=== PATIENT | male | born 1975 | race Caucasian/White ===

== ENCOUNTER 2025-05-21 08:47 | Emergency (ER) | payer OTHER, SELFPAY ==
[2025-05-21 08:54] VITALS: BP 184/100; PULSE 108; RESP 28; TEMP 36.4; O2SAT 96
--- NOTE | 2025-05-21 09:12 | ED_ITS ---
HPI - Dental/Oral General Chief complaint: Dental/Oral Stated complaint: right side face swelling/tooth Time Seen by Provider: 05/21/25 09:12 Source: patient Mode of arrival: ambulatory Limitations: no limitations History of Present Illness HPI Narrative: 50 yo M Presents with complaint of right upper dental pain. Patient states that tooth broke while eating about 3 days ago. Has right-sided facial swelling. Does not have a dentist. Patient's blood pressure elevated in triage. Neck is blood pressure is elevated due to too small of cuff. Denies headache, chest pain or shortness of breath. Does not have a primary care physician. All systems reviewed and negative except as noted Above. Related Data Allergies Allergy/AdvReac Type Severity Reaction Status Date / Time No Known Allergies Allergy Verified 05/21/25 09:04 PMFSH Comments At time of signature, agree with nursing past medical, surgical, social and family history. There is no relevant family history pertinent to the presenting complaint. Exam Narrative: GENERAL: This is a well-nourished, well-developed patient, in no apparent distress. HEAD: normocephalic, atraumatic. EYES: PERRL. Sclera clear/white. Vision is grossly intact. EARS: External ears normal NOSE: External nose normal MOUTH: tooth #6 broken down to gumline and decayed, surrounding swelling to gums, no fluctuance NECK: Neck supple, non-tender without lymphadenopathy, masses or thyromegaly. CARDIOVASCULAR: Regular rate and rhythm without murmurs, gallops, or rubs. RESPIRATORY: Clear to auscultation. Breath sounds equal bilaterally. No wheezes, rales, or rhonchi. SKIN: warm, Dry, intact with no suspicious lesions or rash, good texture and turgor. NEURO: awake, alert, and oriented to person, place and time. There were no obv ious focal neurologic abnormalities. EXTREMITIES: No joint tenderness, effusion, or edema noted. Course Course Level of Care: Express Care Visit Vital Signs Vital signs: Vital Signs Temperature 36.4 C L 05/21/25 08:54 Pulse Rate 108 H 05/21/25 08:54 Respiratory Rate 28 H 05/21/25 08:54 Blood Pressure 184/100 H 05/21/25 08:54 Pulse Oximetry 96 05/21/25 08:54 Oxygen Delivery Room Air 05/21/25 08:54 Temperature 36.4 C L 05/21/25 08:54 Pulse Rate 108 H 05/21/25 08:54 Respiratory Rate 28 H 05/21/25 08:54 Blood Pressure 184/100 H 05/21/25 08:54 Pulse Oximetry 96 05/21/25 08:54 Oxygen Delivery Room Air 05/21/25 08:54 reviewed MDM - Dental/Oral MDM Narrative Medical decision making narrative: BP manually checked by [employer], 152/100. large cuff used, no thigh cuff available. recommend follow up with PCP Will treat dental infection with amoxicillin. Recommend follow-up with a dentist. Discharge Plan Discharge Clinical Impression: Dental infection, Elevated blood pressure reading Patient Disposition: Home Condition: Stable Instructions: Antibiotic Form, Hypertension (ED), Toothache (ED) Additional Instructions: take antibiotic as prescribed until gone. Take Tylenol or ibuprofen every 6-8 hours as needed for pain. See a dentist at next available appointment. Your blood pressure was elevated today. Follow-up with primary care physician to recheck blood pressure in 1 week. Patient Language: Marshallese Prescriptions: New amoxicillin 875 mg tablet 875 mg PO Q12H 10 Days Qty: 20 0RF Follow-up/Referrals: Db Ramesh MD [Physician, Family Practice] Referral Note: follow-up with a primary care physician to establish care, recheck blood pressure Time of Disposition: 09:21
== END 2025-05-21 09:28 | disposition home or self-care (01) ==
PROVIDERS: Emergency Provider Nurse Practitioner Family
DX: K04.7 Periapical abscess without sinus (principal); R03.0 Elevated blood-pressure reading, without diagnosis of hypertension
CPT/HCPCS: 99203; G0463